=== PATIENT | male | born 1975 | race African-American/Black ===

== ENCOUNTER 2019-11-22 09:13 | Inpatient (IN) | payer OTHER ==
[~2019-11-22] VITALS: Ht 175.3 cm; Wt 98.9 kg
[2019-11-22] VITALS (7 sets, daily range): BP systolic 86–106; BP diastolic 48–61
[2019-11-22 10:13] LABS: BASOPHILS % 0.2 % (0.0-2.0); EOSINOPHILS % 0.6 % (0.0-5.0); LYMPHOCYTES % 27.5 % (20.0-50.0); MEAN CORPUSCULAR HEMOGLOBIN 28.5 pg (28.0-32.0); MEAN CORPUSCULAR VOLUME 87.5 fL (80.0-94.0); MEAN PLATELET VOLUME 6.9 fl (7.4-10.4); MONOCYTES % 10.5 % (2.0-8.0); NEUTROPHILS % 61.2 % (40.0-76.0); PLATELET 388 x1000/uL (130-400); RED BLOOD CELL COUNT 2.37 mill/uL (4.7-6.1); RED CELL DISTRIBUTION WIDTH 16.1 % (11.6-14.6)
[2019-11-22 10:19] LABS: CHLORIDE 106 mEq/L (98-107)
[2019-11-22 10:22] LABS: INR 1.1; PROTHROMBIN TIME 11.3 sec (9.6-11.0)
[2019-11-22 10:23] LABS: HEMATOCRIT. 20.8 % (42.0-52.0); HEMOGLOBIN. 6.8 g/dL (14.0-18.0)
[2019-11-22] MEDS ORDERED: IOHEXOL-300 100 ML BOTTLE ONE (11:28)
[2019-11-22] MEDS ORDERED: SODIUM CHLORIDE 0.9% 1,000 ML IV ONE ×2 (11:34→13:00)
[2019-11-22] MEDS ORDERED: PANTOPRAZOLE SODIUM 40 MG/VIAL IV STA (11:34)
[2019-11-22] MEDS ORDERED: ACETAMINOPHEN 325MG TABLET PO PRN (12:30)
[2019-11-22] MEDS ORDERED: ONDANSETRON HCL 4MG/2ML INJ IV PRN (12:30)
[2019-11-22 12:45] LABS: TOTAL IRON BINDING CAPACITY 229 ug/dL (250-450)
[2019-11-22] MEDS ORDERED: METRONIDAZOLE 500 MG PREMIX 100 ML IV NR (13:00)
[2019-11-22] MEDS ORDERED: LEVOFLOXACIN 500MG PREMIX 100 ML IV NR (13:00)
[2019-11-22] MEDS: MESALAMINE 400 MG CAPSULE.DR PO SCH ×2 (14:20→18:35)
[2019-11-22 15:01] LABS: CLARITY URINE CLEAR (CLEAR); COLOR URINE YELLOW (YELLOW); KETONES URINE NEGATIVE (NEGATIVE); LEUKOCYTE ESTERASE URINE NEGATIVE (NEGATIVE); NITRITE URINE NEGATIVE (NEGATIVE); OCCULT BLOOD URINE NEGATIVE (NEGATIVE); PROTEIN URINE NEGATIVE (NEGATIVE); SPECIFIC GRAVITY URINE 1.039 (1.005-1.030); UROBILINOGEN URINE 0.2 E.U./dL (0.2-1.0)
[2019-11-22 15:20] LABS: *BARBITURATES SCREEN URINE NEGATIVE (NEGATIVE); CANNABINOID URINE SCREEN NEGATIVE (NEGATIVE); METHADONE URINE SCREEN NEGATIVE (NEGATIVE); OPIATES URINE SCREEN NEGATIVE (NEGATIVE); PHENCYCLIDINE URINE SCREEN NEGATIVE (NEGATIVE)
[2019-11-22 15:21] LABS: *AMPHETAMINES SCREEN URINE NEGATIVE (NEGATIVE); *BENZODIAZEPINES SCREEN URINE NEGATIVE (NEGATIVE); *COCAINE SCREEN URINE NEGATIVE (NEGATIVE)
[2019-11-22] MEDS ORDERED: OMEP20CA14 PO (17:18)
[2019-11-22] MEDS: FERROUS SULFATE 325MG TABLET PO SCH (18:35)
[2019-11-22] MEDS: METHYLPREDNISOLONE SOD SUCC 40 MG/ML VIAL IV SCH (21:00)
[2019-11-23] VITALS: BP 93/55
[2019-11-23 02:42] LABS: HEMATOCRIT 24.8 % (42.0-52.0); HEMOGLOBIN 8.2 g/dL (14.0-18.0)
[2019-11-23 04:00] VITALS: BP 95/56
[2019-11-23] MEDS: METHYLPREDNISOLONE SOD SUCC 40 MG/ML VIAL IV SCH ×2 (04:40→12:30)
[2019-11-23 07:42] LABS: BASOPHILS % 0.1 % (0.0-2.0); EOSINOPHILS % 0.5 % (0.0-5.0); HEMOGLOBIN. 7.7 g/dL (14.0-18.0); MEAN CORPUSCULAR HEMOGLOBIN 28.5 pg (28.0-32.0); MEAN CORPUSCULAR VOLUME 84.6 fL (80.0-94.0); MEAN PLATELET VOLUME 6.6 fl (7.4-10.4); MONOCYTES % 8.6 % (2.0-8.0); NEUTROPHILS % 73.8 % (40.0-76.0); PLATELET 281 x1000/uL (130-400); RED BLOOD CELL COUNT 2.72 mill/uL (4.7-6.1); RED CELL DISTRIBUTION WIDTH 15.7 % (11.6-14.6)
[2019-11-23 07:52] LABS: CHLORIDE 108 mEq/L (98-107)
[2019-11-23] MEDS: FERROUS SULFATE 325MG TABLET PO SCH ×2 (08:30→12:30)
[2019-11-23] MEDS: MESALAMINE 400 MG CAPSULE.DR PO SCH ×2 (08:30→12:31)
[2019-11-23] MEDS ORDERED: DOCUSATE SODIUM 250MG CAPSULE PO SCH (10:45)
[2019-11-23] MEDS ORDERED: PANTOPRAZOLE SODIUM 40 MG/VIAL IV SCH (13:00)
[2019-11-23 15:29] VITALS: BP 91/60
== END 2019-11-23 16:00 | disposition home or self-care (01) | DRG 73 ==
LOC: ER 09:27 → 8WST 11:56 → ENRESERV 14:04
PROVIDERS: ADMIT Internal Medicine; ATTEND Internal Medicine
PROC: 30233N1 Transfusion of Nonautologous Red Blood Cells into Peripheral Vein, Percutaneous Approach (ICD-10-PCS; principal; 2019-11-22)
DX: G90.8 Other disorders of autonomic nervous system (principal); E43 Unspecified severe protein-calorie malnutrition; K51.90 Ulcerative colitis, unspecified, without complications; K92.2 Gastrointestinal hemorrhage, unspecified; D64.9 Anemia, unspecified; I95.9 Hypotension, unspecified; Z79.899 Other long term (current) drug therapy; Z68.32 Body mass index [BMI] 32.0-32.9, adult
CPT/HCPCS: 36415; 74177; 80048; 80053; 80305; 81003; 82728; 83540; 83550; 85014; 85018; 85025; 86850; 86900; 86920; 93005; 99291; C9113; J1956; J2920; J3490; J7030; P9016; Q9967